=== PATIENT | female | born 1995 | race Caucasian/White ===

== ENCOUNTER 2017-07-14 09:25 | Day surgery (SDC) | payer BC ==
[2017-07-13 15:03] VITALS: BMI 25.0
[2017-07-14 10:35] LABS: BHCG - Serum Negative (NEGATIVE); Pregs Control Background? CLEAR/WHITE (CLR/WHITE); Pregs Control Bar Appear? YES (CONTROL BAR)
[2017-07-14] MEDS ORDERED: Lidocaine 1% w/Epinephrine 1:200K 30 ML VIAL ONE (12:04)
[2017-07-14] MEDS ORDERED: Bacitracin Zinc Ointment 30 gm TUBE ONE (12:04)
[2017-07-14] MEDS ORDERED: Ciprofloxacin 0.2% Otic 1 DROP CON ONE (12:04)
[2017-07-14] MEDS ORDERED: Midazolam HCl 2 mg/2 ml Vial ONE (12:06)
[2017-07-14] MEDS ORDERED: Fentanyl 100 MCG/2 ML VIAL ONE ×2 (12:06→13:56)
[2017-07-14] MEDS ORDERED: Gelfilm 1 EA Packet ONE (12:49)
[2017-07-14] MEDS ORDERED: Hydrocodone-Acetamin 15 ML UDCUP ONE (15:00)
[2017-07-14] MEDS ORDERED: Succinylcholine Chloride 20 MG/ML 10 ml SYRINGE FS ONE (16:20)
[2017-07-14] MEDS ORDERED: Lidocaine 1% PF 5 ML VIAL ONE (16:20)
[2017-07-14] MEDS ORDERED: PROPOFOL 200 MG/20 ML VIAL ONE (16:20)
[2017-07-14] MEDS ORDERED: Ondansetron HCl/PF 4 MG/2 ML Vial ONE (16:20)
--- NOTE | 2017-07-14 22:07 | OP ---
DATE OF PROCEDURE: 07/14/2017 PREOPERATIVE DIAGNOSES: 1. Right tympanic membrane perforation. 2. Right conductive hearing loss. POSTOPERATIVE DIAGNOSES: 1. Right tympanic membrane perforation. 2. Right conductive hearing loss. PROCEDURES: Right tympanoplasty without ossicular chain reconstruction. SURGEON: Dr. Alexis Bailey. ESTIMATED BLOOD LOSS: 10 mL COMPLICATIONS: None. ANESTHESIA: GETA. PROCEDURE IN DETAIL: Patient was taken to the operating room, placed supine on the table. General e ndotracheal anesthesia was obtained by the Anesthesia staff. Tube was secured in the left lower lip. Shoulder roll was placed and the head was turned into exposing the right ear. Following this, the right ear was prepped and draped in standard surgical fashion. A 6 mL of 1% lidocaine with 1:100,000 epinephrine was injected into the bony cartilaginous junction of the right external auditory canal a s well as in the postauricular area. Following this, a postauricular incision was made, posterior to the postauricular sulcus. This was carried through skin and subcutaneous tissue with a 15-blade. F ollowing this, dissection was carried with the Bovie electrocautery down to the level of the temporal is fascia. A 1 cm x 2 cm piece of temporalis fascia was harvested. The loose areolar tissue and the n was pressed and allowed to dry for approximately 10 minutes. Following this, a tympanomeatal flap was created using the Bovie down to the mastoid bone. Subperiosteal elevation was then performed pos teriorly and medially down the external auditory canal. Approximately 8 mm from annulus, a 15-blade was used to incise the external auditory canal skin visualizing the tympanomeatal flap. The tympanic membrane perforation was approximately 40% nature in the middle meatus. When I saw middle ear mucos a was healthy, a Mandujano needle and cup forceps were used to rim the edges of the perforation. Followi ng this, the annulus was elevated using a Mandujano needle. A piece of Gelfoam was placed onto the promo ntory and then the dried temporalis fascia. Gelfoam soaked with Floxin otic drops were placed medial ly. The tympanomeatal flap was then returned to its normal position and Gelfoam pledgets were placed laterally to support the graft. Following this, the posterior auricular skin was then repositioned is normal in anatomic position. The mastoid fascia and periosteum was reapproximated using Monocryl stitches and postauricular stitches were placed using Monocryl for the subcuticular stitches and dry kiln operator kimberly for the skin. Following this, microscope was used to ensure the tympanomeatal flap and the exter nal auditory canal skin aligned and the remainder of the ear canal was filled with Gelfoam soaked wit h Floxin. Patient tolerated the procedure well.
== END 2017-07-14 16:42 | disposition home or self-care (01) ==
LOC: SDC 09:25
PROVIDERS: ATTEND Otolaryngology Plastic Surgery within the Head & Neck
PROC: 09Q50ZZ Repair Right Middle Ear, Open Approach (ICD-10-PCS; principal; 2017-07-14)
DX: H72.01 Central perforation of tympanic membrane, right ear (principal); H90.2 Conductive hearing loss, unspecified; Z90.89 Acquired absence of other organs
CPT/HCPCS: 36415; 84703; 85014; 96374; J2001; J2250; J2270; J2405; J2704; J3010

== ENCOUNTER 2017-10-27 09:06 | Day surgery (SDC) | payer BC ==
[2017-10-26 11:01] VITALS: BMI 25.0
[2017-10-27] MEDS ORDERED: Scopolamine 1.5 mg/72 hour Patch ONE (10:01)
[2017-10-27] MEDS ORDERED: Gelfilm 1 EA Packet ONE (10:17)
[2017-10-27] MEDS ORDERED: Bacitracin Zinc Ointment 30 gm TUBE ONE (10:17)
[2017-10-27] MEDS ORDERED: Ciprofloxacin 0.2% Otic ONE (10:17)
[2017-10-27] MEDS ORDERED: Lidocaine 1% w/Epinephrine 1:100K 30 ML VIAL ONE (10:17)
[2017-10-27] MEDS ORDERED: Fentanyl 250 MCG/5 ML VIAL ONE (10:24)
[2017-10-27] MEDS ORDERED: Morphine 4 MG/ML VIAL ONE (12:47)
[2017-10-27] MEDS ORDERED: Ondansetron HCl/PF 4 MG/2 ML Vial ONE (15:27)
[2017-10-27] MEDS ORDERED: PROPOFOL 200 MG/20 ML VIAL ONE (15:27)
[2017-10-27] MEDS ORDERED: Lidocaine 1% PF 5 ML VIAL ONE (15:27)
[2017-10-27] MEDS ORDERED: Dexamethasone 20 MG/5 ML VIAL ONE (15:27)
--- NOTE | 2017-10-28 12:06 | OP ---
DATE OF PROCEDURE: 10/27/2017 PREOPERATIVE DIAGNOSES: 1. Left tympanic membrane perforation. 2. Left conductive hearing loss. POSTOPERATIVE DIAGNOSES: 1. Left tympanic membrane perforation. 2. Left conductive hearing. PROCEDURE: Left tympanoplasty without ossicular chain reconstruction. SURGEON: Alexis Bailey M.D. ESTIMATED BLOOD LOSS: 10 mL. COMPLICATIONS: None. ANESTHESIA: GETA. PROCEDURE: The patient was taken to the operating room and placed supine on the table. General endo tracheal anesthesia was obtained by the Anesthesia staff. Tube was secured in the right lower lip. The head was gently turned exposing the left ear better. A shoulder roll was placed. Following this , the patient was prepped and draped in standard surgical fashion. Following this, 5 mL of 1% lidoca ine 1:10,000 epinephrine was injected into the bony cartilaginous junction of the external auditory c anal as well as in the postauricular area. Following this, an incision was made just posterior to th e postauricular sulcus with a 15 blade. The incision was carried through skin and subcutaneous tissu es. Following this, the skin was gently retracted with skin retractors as the temporalis fascia was identified. A 1.5 x 1 cm piece of fascia was harvested, cleaned pressed and dried to be used as a me dial onlay fascial graft. Following this, a periosteal incision was made using the Bovie electrocaut chente and subperiosteal dissection was then carried beginning overlying the mastoid bone and carried do wn the posterior external auditory canal. Following this, a tympanomeatal incision was made with a 1 5 blade and was retracted anteriorly exposing the tympanic membrane and its perforation. There was a 40% perforation was intact. Middle ear mucosa was healthy, a Mandujano needle and cup forceps were used to remove the edges of this tympanic membrane perforation. Following this, a small piece of Gelfilm was placed onto the promontory of the middle ear and the annulus and tympanic membrane were elevated . The temporalis fascial graft was placed in a medial onlay fashion underneath this tympanic membran e perforation. Gelfoam soaked in Floxin otic drops were then placed into the middle ear to support t he graft medially. The tympanomeatal flap and the graft were then returned to its anatomic positions . The packing was then placed lateral to the tympanic membrane. The tympanomeatal skin was returned to its normal position. Monocryl sutures were used for the mastoid periosteum as well as the subcut icular tissues. Chromic gut stitches were placed on the skin. Following this, a small cotton ball a nd Gelfoam was placed in the external auditory canal. The patient tolerated the procedure well. A G lasscock ear dressing was then placed at the close of the procedure.
== END 2017-10-27 15:22 | disposition home or self-care (01) ==
LOC: SDC 09:06
PROVIDERS: ATTEND Otolaryngology Plastic Surgery within the Head & Neck
PROC: 09U807Z Supplement Left Tympanic Membrane with Autologous Tissue Substitute, Open Approach (ICD-10-PCS; principal; 2017-10-27)
DX: H72.02 Central perforation of tympanic membrane, left ear (principal); H90.2 Conductive hearing loss, unspecified; H61.20 Impacted cerumen, unspecified ear
CPT/HCPCS: 36415; 85014; 96374; J1100; J2001; J2270; J2405; J2704; J3010

== ENCOUNTER 2019-02-02 11:10 | Outpatient (CLI) | payer BC | END 2019-02-02 11:11 | disposition home or self-care (01) | LOC: CTENTCT 11:10 | PROVIDERS: ATTEND Otolaryngology Plastic Surgery within the Head & Neck | DX: J32.9 Chronic sinusitis, unspecified (principal) | CPT/HCPCS: 70486 ==

== ENCOUNTER 2019-11-20 14:14 | Outpatient (CLI) | payer BC, OTHER ==
[2019-11-20 16:33] LABS: #Lymphocytes 1.9 thou/uL (1.20-3.40); #Monocytes 0.7 thou/uL (0.11-0.59); #Neutrophils 5.7 thou/uL (1.40-6.50); %Basophils 0.4 % (0.0-1.0); %Eosinophils 0.4 % (0.0-10.0); %Lymphocytes 22.3 % (21.0-51.0); %Monocytes 8.1 % (0.0-10.0); %Neutrophils 68.7 % (42.0-75.0); Hemoglobin 14.3 g/dL (12.0-16.0); Mean Corpuscular HGB CONC 33.6 g/dL (32.0-36.0); Mean Corpuscular Hemoglobin 29.6 pg (27.0-31.0); Mean Platelet Volume 9.1 fL (7.4-10.4); Platelet Count 189 thou/uL (130-400); Red Blood Cell (RBC) Count 4.85 mill/uL (4.20-5.40); White Blood Cell (WBC) Count 8.3 thou/uL (4.8-10.8)
[2019-11-21 12:47] LABS: SARS-CoV-2 MS2 Positive; SARS-CoV-2 N Gene Positive; SARS-CoV-2 S Gene Positive; SARS-CoV-2 orf1ab Positive
== END 2019-11-20 14:15 | disposition home or self-care (01) ==
LOC: LABBT 14:14
PROVIDERS: ATTEND Student in an Organized Health Care Education/Training Program
DX: Z01.812 Encounter for preprocedural laboratory examination (principal); Z11.59 Encounter for screening for other viral diseases; O03.4 Incomplete spontaneous abortion without complication
CPT/HCPCS: 85025; 86850; 86900; 86901; 87635; U0003

== ENCOUNTER 2019-12-11 10:01 | Day surgery (SDC) | payer BC ==
[2019-12-08 13:20] VITALS: BMI 26.8
[2019-12-11] MEDS ORDERED: PROPOFOL 200 MG/20 ML VIAL ONE (11:35)
[2019-12-11] MEDS ORDERED: Ondansetron PF 4 MG/2 ML Vial ONE (11:35)
[2019-12-11] MEDS ORDERED: Dexamethasone 20 MG/5 ML VIAL ONE (11:35)
[2019-12-11] MEDS ORDERED: Ketorolac Tromethamine 30 MG/ML VIAL ONE (11:35)
[2019-12-11] MEDS ORDERED: Glycopyrrolate 0.2 MG/ML 5 ML SYRINGE ONE (11:35)
[2019-12-11] MEDS ORDERED: Midazolam HCl 2 mg/2 ml Vial ONE (11:48)
[2019-12-11] MEDS ORDERED: Fentanyl 100 MCG/2 ML VIAL ONE ×2 (11:48→13:04)
[2019-12-11] MEDS ORDERED: Meperidine HCl/PF 25 MG/ML VIAL ONE (13:27)
--- NOTE | 2019-12-13 14:11 | OP ---
DATE OF PROCEDURE: 12/11/2019 PREOPERATIVE DIAGNOSIS: Missed at 9 weeks. POSTOPERATIVE DIAGNOSIS: Missed at 9 weeks. PROCEDURE PERFORMED: Suction dilation and curettage. ANESTHESIA: TIVA. WEB MOBILE DESIGNER: None. COMPLICATIONS: None. DRAINS: None. PATHOLOGY: Products of conception. ESTIMATED BLOOD LOSS: 20 mL. FINDINGS: Small amount of products of conception, approximately 8-week size uterus, gritty texture to all uterine san on sharp curetting. No active bleeding from cervical os on conclusion of the procedure. DESCRIPTION OF PROCEDURE: The patient was taken to the operating room, where IV anesthesia was obtained without difficulty. The patient was prepped and draped in a sterile fashion in dorsal lithotomy position. A speculum was placed in the vagina. The anterior lip of the cervix was grasped with a single-tooth tenaculum. The cervix was progressively dilated with Delio dilators to 20-Turkmen and a 9 mm suction curette was placed into the uterus with a maximum pressure of 50 mmHg and suction curette. Suction was placed, noting a small amount of products of conception returning. Additional passes were performed and there was minimal blood and products that were retrieved on this. Therefore, sharp curetting was performed to all uterine san until a gritty texture was noted. A suction curette was then passed again several times. There was no additional bleeding and no additional passage of products. This was removed of the patient. The tenaculum was removed also. The cervix was observed for any bleeding and there was a minimal amount of bleeding. Therefore, fundal massage was performed. The cervix was then re-visualized and no bleeding was noted from the cervix actively. Tenaculum sites were hemostatic. All instruments removed out of the vagina. The patient tolerated the procedure well. Sponge, lap, and needle counts correct x2. The patient received Ancef 2 g prior to procedure. Job ID: [id number]
== END 2019-12-11 14:26 | disposition home or self-care (01) ==
LOC: SDC 10:01
PROVIDERS: ATTEND Student in an Organized Health Care Education/Training Program
PROC: 10D17Z9 Manual Extraction of Products of Conception, Retained, Via Natural or Artificial Opening (ICD-10-PCS; principal; 2019-12-11)
DX: O02.1 Missed abortion (principal)
CPT/HCPCS: 88305; J0690; J1100; J1885; J2175; J2250; J2405; J2704; J3010

== ENCOUNTER 2020-10-31 02:35 | Emergency (ER) | payer BC ==
[2020-10-31] MEDS ORDERED: Morphine 4 MG/ML VIAL ONE (03:05)
[2020-10-31 03:42] LABS: Bilirubin Negative (Negative); Blood, Urine Moderate (Negative); Glucose, Urine (Dipstick) Negative (Negative); Ketone, Urine Negative (Negative); Leukocyte Trace (Negative); Nitrite Negative (Negative); Protein, Urine (Dipstick) Negative (Neg-Trace); Specific Gravity, Urine 1.025 (1.005-1.030); Urobilinogen 0.2 mg/dL (Less than 2)
[2020-10-31 03:46] LABS: Clarity Clear (Clear)
[2020-10-31 03:53] LABS: Pregnancy Test - Urine (BHCG) Negative (Negative); Pregu Control Background? CLEAR/WHITE (CLR/WHITE); Pregu Control Bar Appear? YES (CONTROL BAR); Specific Gravity 1.025 (1.002-1.036)
[2020-10-31 03:55] LABS: Squamous Epithelial None Seen HPF (0-3)
[2020-10-31 03:57] LABS: #Basophils 0.1 thou/uL (0.0-0.2); #Eosinphils 0.2 thou/uL (0.0-0.7); #Lymphocytes 1.9 thou/uL (1.20-3.40); #Monocytes 0.7 thou/uL (0.11-0.59); #Neutrophils 4.4 thou/uL (1.40-6.50); %Basophils 1.4 % (0.0-1.0); %Eosinophils 2.8 % (0.0-10.0); %Lymphocytes 26.4 % (21.0-51.0); %Monocytes 9.3 % (0.0-10.0); %Neutrophils 60.2 % (42.0-75.0); Hemoglobin 12.8 g/dL (12.0-16.0); Mean Corpuscular HGB CONC 34.8 g/dL (32.0-36.0); Mean Corpuscular Hemoglobin 29.8 pg (27.0-31.0); Mean Corpuscular Volume 85.7 fL (78.0-98.0); Mean Platelet Volume 8.7 fL (7.4-10.4); Platelet Count 289 thou/uL (130-400); RBC Distribution Width 11.9 % (11.5-14.5); Red Blood Cell (RBC) Count 4.28 mill/uL (4.20-5.40); White Blood Cell (WBC) Count 7.3 thou/uL (4.8-10.8)
[2020-10-31 04:22] LABS: ALT (SGPT) 20 U/L (8-55); AST (SGOT) 16 U/L (5-34); Albumin 4.1 g/dL (3.5-5.0); Alkaline Phosphatase 105 U/L (40-110); Anion Gap 13 mmol/L (10-20); BUN (Urea Nitrogen) 14 mg/dL (7.0-18.7); Bilirubin, Total 0.6 mg/dL (0.2-1.2); Calc. Creatinine Clearance 0 mL/min (70-130); Calcium 9.5 mg/dL (7.8-10.44); Carbon Dioxide 24 mmol/L (22-29); Chloride 104 mmol/L (98-107); Globulin 3.2 g/dL (2.4-3.5); Glucose 98 mg/dL (70-105); Lipase 35 U/L (8-78); Potassium 3.8 mmol/L (3.5-5.1); Protein, Total 7.3 g/dL (6.0-8.3); Sodium 137 mmol/L (136-145)
[2020-10-31 06:14] LABS: Bacteria/HPF 1+ HPF (None Seen)
== END 2020-10-31 05:11 | disposition home or self-care (01) ==
LOC: ERS 02:35
DX: R10.11 Right upper quadrant pain (principal)
CPT/HCPCS: 36415; 80053; 81003; 81015; 81025; 83690; 85025; 99284; J2270

== ENCOUNTER 2020-11-18 10:21 | Outpatient (CLI) | payer BC ==
[2020-11-18 12:16] LABS: BHCG - Serum Negative (NEGATIVE); Pregs Control Background? CLEAR/WHITE (CLR/WHITE); Pregs Control Bar Appear? YES (CONTROL BAR)
[2020-11-18 12:26] LABS: ALT (SGPT) 47 U/L (8-55); AST (SGOT) 20 U/L (5-34); Albumin 4.6 g/dL (3.5-5.0); Alkaline Phosphatase 170 U/L (40-110); Anion Gap 16 mmol/L (10-20); BUN (Urea Nitrogen) 16 mg/dL (7.0-18.7); Bilirubin, Direct 0.3 mg/dL (0.1-0.3); Bilirubin, Total 0.9 mg/dL (0.2-1.2); Calc. Creatinine Clearance 0 mL/min (70-130); Calcium 9.9 mg/dL (7.8-10.44); Carbon Dioxide 23 mmol/L (22-29); Chloride 105 mmol/L (98-107); Globulin 3.1 g/dL (2.4-3.5); Glucose 88 mg/dL (70-105); Potassium 4.3 mmol/L (3.5-5.1); Protein, Total 7.7 g/dL (6.0-8.3); Sodium 140 mmol/L (136-145)
[2020-11-18 12:35] LABS: #Basophils 0.1 10x3/uL (0.0-0.2); #Eosinphils 0.2 10x3/uL (0.0-0.5); #Monocytes 0.4 10x3/uL (0.0-1.1); %Basophils 1.4 % (0.0-2.0); %Eosinophils 5.3 % (0.0-6.0); %Lymphocytes 34.9 % (18.0-47.0); %Monocytes 10.6 % (0.0-10.0); %Neutrophils 47.6 % (40.0-75.0); Hemoglobin 13.7 g/dL (12.0-15.5); Mean Corpuscular HGB CONC 31.8 g/dL (32.0-36.0); Mean Corpuscular Hemoglobin 27.1 pg (27.0-33.0); Mean Corpuscular Volume 85.3 fl (81.6-98.3); Mean Platelet Volume 11.5 fl (7.4-10.4); Platelet Count 262 10x3/uL (150-450); RBC Distribution Width 12.9 % (11.5-14.5); Red Blood Cell (RBC) Count 5.05 10x6/uL (3.90-5.03); White Blood Cell (WBC) Count 4.2 10x3/uL (3.5-10.5)
[2020-11-18 19:50] LABS: SARS-CoV-2 PCR by NAA Not Detected (NotDetected)
== END 2020-11-18 10:22 | disposition home or self-care (01) ==
LOC: LABBT 10:21
PROVIDERS: ATTEND Surgery
DX: Z01.812 Encounter for preprocedural laboratory examination (principal); K80.20 Calculus of gallbladder without cholecystitis without obstruction; Z20.822 Contact with and (suspected) exposure to COVID-19
CPT/HCPCS: 80053; 80076; 84703; 85025; U0003; U0005

== ENCOUNTER 2020-11-21 06:06 | Day surgery (SDC) | payer BC ==
[2020-11-19 12:32] VITALS: BMI 26.6
[2020-11-21] MEDS ORDERED: cefOXitin Sodium/Dextrose 2 GM/50 ML BAG ONE (06:45)
[2020-11-21] MEDS ORDERED: Fentanyl 100 MCG/2 ML VIAL ONE (06:47)
[2020-11-21] MEDS ORDERED: Bupivacaine 0.25% HCL 30 ML VIAL ONE (06:48)
[2020-11-21] MEDS ORDERED: Lidocaine 1% w/Epinephrine 1:100K 20 ML VIAL ONE (06:48)
[2020-11-21] MEDS ORDERED: Glycopyrrolate 0.2 MG/ML 5 ML SYRINGE ONE (07:37)
[2020-11-21] MEDS ORDERED: Ondansetron PF 4 MG/2 ML Vial ONE (07:37)
[2020-11-21] MEDS ORDERED: Ketorolac Tromethamine 30 MG/ML VIAL ONE (07:37)
[2020-11-21] MEDS ORDERED: Lidocaine 1% PF 5 ML VIAL ONE (07:37)
[2020-11-21] MEDS ORDERED: Rocuronium Bromide 10 MG/ML (10ML VIAL) ONE (07:37)
[2020-11-21] MEDS ORDERED: PROPOFOL 200 MG/20 ML VIAL ONE (07:37)
[2020-11-21] MEDS ORDERED: Dexamethasone 20 MG/5 ML VIAL ONE (07:37)
[2020-11-21] MEDS ORDERED: Meperidine HCl/PF 25 MG/ML VIAL ONE (08:36)
[2020-11-21] MEDS ORDERED: HYDROcodone/Acetaminophen 5/325 mg Tablet ONE (09:35)
== END 2020-11-21 10:09 | disposition home or self-care (01) ==
LOC: SDC 06:06
PROVIDERS: ATTEND Surgery
PROC: 0FT44ZZ Resection of Gallbladder, Percutaneous Endoscopic Approach (ICD-10-PCS; principal; 2020-11-21)
DX: K80.10 Calculus of gallbladder with chronic cholecystitis without obstruction (principal); K66.0 Peritoneal adhesions (postprocedural) (postinfection)
CPT/HCPCS: 88304; J0694; J1100; J1885; J2175; J2405; J2704; J3010; S0020